=== PATIENT | male | born 1945 | race Two or more races ===

== ENCOUNTER → 2018-03-29 | Outpatient (CLI) | payer MEDICARE, OTHER ==
[2018-03-30 18:46] LABS: AHG CROSSMATCH 1 4
== END | disposition home or self-care (01) ==
LOC: LAB 15:03
DX: C92.00 Acute myeloblastic leukemia, not having achieved remission (principal)
CPT/HCPCS: 36430; 86850; 86870; 86900; 86901; 86902; 86920

== ENCOUNTER 2018-04-13 12:39 | Inpatient (IN) | payer MEDICARE, OTHER ==
[2018-04-13 15:19] LABS: WHITE BLOOD COUNT 2.2 10^3/ul (4.8-10.8)
[2018-04-13 15:19] LABS: ABNORMAL IP MESSAGE 1; MEAN CORPUSCULAR HEMOGLOBIN 30.9 pg (29.0-33.0); MEAN CORPUSCULAR HGB CONC 33.7 g/dl (32.0-37.0); MEAN CORPUSCULAR VOLUME 91.8 fl (82.0-101.0); MEAN PLATELET VOLUME 9.8 fl (7.4-10.4); PLATELET COUNT 34 10^3/UL (140-415); POSITIVE DIFF @See below; RED BLOOD COUNT 2.07 10^6/ul (4.70-6.10); RED CELL DISTRIBUTION WIDTH 12.8 % (11.5-14.5)
[2018-04-13 15:24] LABS: ADD MAN DIFF? YES; HEMOGLOBIN 6.4 g/dl (14.0-18.0)
[2018-04-13 15:35] LABS: ALANINE AMINOTRANSFERASE 30 IU/L (13-69); ALBUMIN 3.5 g/dl (3.3-4.9); ALBUMIN/GLOBULIN RATIO 0.74; ALKALINE PHOSPHATASE 83 IU/L (42-121); ANION GAP 8 (5-13); ASPARTATE AMINO TRANSFERASE 20 IU/L (15-46); BILIRUBIN,INDIRECT 0.5 mg/dl (0-1.1); BILIRUBIN,TOTAL 0.5 mg/dl (0.2-1.3); BLOOD UREA NITROGEN 19 mg/dl (7-20); CALCIUM 8.5 mg/dl (8.4-10.2); CARBON DIOXIDE 23 mmol/L (21-31); CHLORIDE 110 mmol/L (97-110); CREATININE 0.77 mg/dl (0.61-1.24); GLUCOSE 110 mg/dl (70-220); LIPASE 67 U/L (23-300); POTASSIUM 4.7 mmol/L (3.5-5.1); SODIUM 141 mmol/L (135-144); TOTAL PROTEIN 8.2 g/dl (6.1-8.1)
[2018-04-13 15:36] LABS: INR 1.07; PT RATIO 1.1
[2018-04-13 15:37] LABS: PARTIAL THROMBOPLASTIN TIME 31.1 Sec (23.0-35.0)
[2018-04-13 15:45] LABS: TROPONIN-I < 0.012 ng/ml (0.000-0.120)
[2018-04-13 16:07] LABS: ANISOCYTOSIS 2+ (0-0); EOSINOPHILS % (M) 3 % (0-7); ERYTHROBLAST% (NRBC) (M) 2 % (0-0); LYMPHOCYTES #M 1.8 10^3/ul (0.8-2.9); LYMPHOCYTES % (M) 85 % (15-51); MICROCYTOSIS 1+ (0-0); MONOCYTES % (M) 1 % (0-11); PLATELET ESTIMATE SIG DECREASED; POLYCHROMASIA 3+ (0-0); REACTIVE LYMPHOCYTES% (M) 3 % (0-0); SEGMENTED NEUTROPHILS (M) % 9 % (39-77); SMUDGE%M 2 % (0-0)
[2018-04-13] MEDS ORDERED: ACETAMINOPHEN 325 MG TAB PO (21:30)
[2018-04-13] MEDS ORDERED: ZOLPIDEM 5 MG TAB PO (21:30)
[2018-04-14] MEDS: FUROSEMIDE 20 MG INJ IV (00:11)
[2018-04-14 00:30] LABS: AHG CROSSMATCH 1 5
[2018-04-14] MEDS: PANTOPRAZOLE (EC) 40 MG TAB PO (05:59)
[2018-04-14 07:27] LABS: ADD MAN DIFF? NO
[2018-04-14 07:31] LABS: WHITE BLOOD COUNT 1.9 10^3/ul (4.8-10.8)
[2018-04-14 07:31] LABS: ABNORMAL IP MESSAGE 1; HEMATOCRIT 25.9 % (42.0-52.0); HEMOGLOBIN 8.8 g/dl (14.0-18.0); MEAN CORPUSCULAR HEMOGLOBIN 30.8 pg (29.0-33.0); MEAN CORPUSCULAR VOLUME 90.6 fl (82.0-101.0); MEAN PLATELET VOLUME 9.8 fl (7.4-10.4); POSITIVE DIFF @See below; RED BLOOD COUNT 2.86 10^6/ul (4.70-6.10); RED CELL DISTRIBUTION WIDTH 12.7 % (11.5-14.5)
[2018-04-14 07:43] LABS: PLATELET COUNT 28 10^3/UL (140-415)
[2018-04-14 08:12] LABS: B-TYPE NATRIURETIC PEPTIDE 561 PG/ML (0-125)
[2018-04-14 08:16] LABS: ANION GAP 8 (5-13); BLOOD UREA NITROGEN 17 mg/dl (7-20); CALCIUM 8.3 mg/dl (8.4-10.2); CARBON DIOXIDE 27 mmol/L (21-31); CHLORIDE 105 mmol/L (97-110); CREATININE 0.81 mg/dl (0.61-1.24); GLUCOSE 102 mg/dl (70-220); POTASSIUM 4.2 mmol/L (3.5-5.1); SODIUM 140 mmol/L (135-144)
[2018-04-14 10:14] LABS: LYMPHOCYTES #M 1.5 10^3/ul (0.8-2.9); LYMPHOCYTES % (M) 84 % (15-51); REACTIVE LYMPHOCYTES% (M) 3 % (0-0); SEGMENTED NEUTROPHILS (M) % 11 % (39-77)
[2018-04-14 10:15] LABS: EOSINOPHILS % (M) 1 % (0-7); GIANT THROMBO% (M) 1 % (0-0); MONOCYTES % (M) 1 % (0-11); PLATELET ESTIMATE SIG DECREASED; SMUDGE%M 4 % (0-0); TARGET CELLS 1+ (0-0)
[2018-04-14 16:41] LABS: ABNORMAL IP MESSAGE 1; HEMOGLOBIN 10.2 g/dl (14.0-18.0); MEAN CORPUSCULAR HEMOGLOBIN 29.7 pg (29.0-33.0); MEAN CORPUSCULAR VOLUME 87.2 fl (82.0-101.0); MEAN PLATELET VOLUME 8.9 fl (7.4-10.4); POSITIVE DIFF @See below; RED BLOOD COUNT 3.44 10^6/ul (4.70-6.10); RED CELL DISTRIBUTION WIDTH 15.2 % (11.5-14.5)
[2018-04-14 16:41] LABS: WHITE BLOOD COUNT 2.2 10^3/ul (4.8-10.8)
[2018-04-14 16:44] LABS: ADD MAN DIFF? YES; PLATELET COUNT 32 10^3/UL (140-415)
[2018-04-14 17:08] LABS: ANISOCYTOSIS 1+ (0-0); BAND NEUTROPHILS % (M) 2 % (0-4); BASOPHILS % (M) 1 % (0-2); EOSINOPHILS % (M) 1 % (0-7); LYMPHOCYTES #M 1.7 10^3/ul (0.8-2.9); LYMPHOCYTES % (M) 80 % (15-51); MICROCYTOSIS 1+ (0-0); MONOCYTE #M 0.1 10^3/ul (0.3-0.9); MONOCYTES % (M) 5 % (0-11); PLATELET ESTIMATE SIG DECREASED; POLYCHROMASIA 1+ (0-0); PROMYELOCYTES % (M) 1 % (0-0); REACTIVE LYMPHOCYTES #M 0.1 10^3/ul (0.0-0.0); REACTIVE LYMPHOCYTES% (M) 5 % (0-0); SEG NEUT #M 0.1 10^3/ul (1.6-7.5); SEGMENTED NEUTROPHILS (M) % 5 % (39-77); SMUDGE%M 1 % (0-0)
== END 2018-04-14 17:29 | disposition home or self-care (01) | DRG 809 ==
LOC: E/R 12:39 → 2NE 16:28 → TEL 20:43
PROVIDERS: Pediatrics
PROC: 30233N1 Transfusion of Nonautologous Red Blood Cells into Peripheral Vein, Percutaneous Approach (ICD-10-PCS; principal; 2018-04-13)
DX: D61.818 Other pancytopenia (principal); C92.00 Acute myeloblastic leukemia, not having achieved remission; I47.2 Ventricular tachycardia; I42.8 Other cardiomyopathies; I10 Essential (primary) hypertension; I25.10 Atherosclerotic heart disease of native coronary artery without angina pectoris; E78.5 Hyperlipidemia, unspecified; I95.9 Hypotension, unspecified
CPT/HCPCS: 36415; 36430; 80048; 80053; 83690; 83880; 84484; 85025; 85610; 85730; 86850; 86870; 86900; 86901; 86920; 93005; 99291-25

== ENCOUNTER 2018-04-27 07:22 | Inpatient (IN) | payer MEDICARE, OTHER ==
[2018-04-27 08:21] LABS: ADD UMIC YES; UR ASCORBIC ACID NEGATIVE (NEGATIVE); UR BILIRUBIN (Dip) NEGATIVE (NEGATIVE); UR BLOOD (Dip) 2+ mg/dL (NEGATIVE); UR CLARITY CLEAR (CLEAR); UR COLOR YELLOW (YELLOW); UR GLUCOSE (Dip) NEGATIVE (NEGATIVE); UR KETONES (Dip) NEGATIVE (NEGATIVE); UR LEUKOCYTE ESTERASE (Dip) NEGATIVE Leu/ul (NEGATIVE); UR MUCUS FEW /HPF (NONE SEEN); UR NITRITE (Dip) NEGATIVE (NEGATIVE); UR RBC 1 /HPF (0-5); UR SPECIFIC GRAVITY (Dip) 1.017 (1.003-1.030); UR TOTAL PROTEIN (Dip) NEGATIVE (NEGATIVE); UR UROBILINOGEN (Dip) NEGATIVE (NEGATIVE); UR WBC 2 /HPF (0-5)
[2018-04-27] MEDS: morphine 4 MG/ML VIAL IV (08:42)
[2018-04-27] MEDS: SODIUM CHLORIDE 0.9% 1L BAG IV* (08:42)
[2018-04-27] MEDS: ONDANSETRON 4 MG INJ IV (08:42)
[2018-04-27] MEDS: CEFTRIAXONE 1 GM/50 ML (PMX) 50 ML IVPB (08:42)
[2018-04-27 09:03] LABS: WHITE BLOOD COUNT 2.9 10^3/ul (4.8-10.8)
[2018-04-27 09:03] LABS: ABNORMAL IP MESSAGE 1; HEMATOCRIT 25.7 % (42.0-52.0); HEMOGLOBIN 8.6 g/dl (14.0-18.0); MEAN CORPUSCULAR HEMOGLOBIN 29.9 pg (29.0-33.0); MEAN CORPUSCULAR HGB CONC 33.5 g/dl (32.0-37.0); MEAN CORPUSCULAR VOLUME 89.2 fl (82.0-101.0); MEAN PLATELET VOLUME 9.4 fl (7.4-10.4); POSITIVE DIFF @See below; RED BLOOD COUNT 2.88 10^6/ul (4.70-6.10); RED CELL DISTRIBUTION WIDTH 15.3 % (11.5-14.5)
[2018-04-27 09:05] LABS: ADD MAN DIFF? YES; PLATELET COUNT 42 10^3/UL (140-415)
[2018-04-27 09:22] LABS: INR 1.23; PROTIME 15.7 Sec (11.9-14.9); PT RATIO 1.2
[2018-04-27 09:23] LABS: PARTIAL THROMBOPLASTIN TIME 34.8 Sec (23.0-35.0)
[2018-04-27 09:26] LABS: ANION GAP 6 (5-13); BLOOD UREA NITROGEN 13 mg/dl (7-20); CALCIUM 8.2 mg/dl (8.4-10.2); CARBON DIOXIDE 27 mmol/L (21-31); CHLORIDE 102 mmol/L (97-110); CREATININE 0.65 mg/dl (0.61-1.24); GLUCOSE 103 mg/dl (70-220); POTASSIUM 4.2 mmol/L (3.5-5.1); SODIUM 135 mmol/L (135-144)
[2018-04-27 09:37] LABS: TROPONIN-I < 0.012 ng/ml (0.000-0.120)
[2018-04-27 10:33] LABS: ANISOCYTOSIS 1+ (0-0); LYMPHOCYTES #M 1.4 10^3/ul (0.8-2.9); LYMPHOCYTES % (M) 50 % (15-51); MONOCYTE #M 0.4 10^3/ul (0.3-0.9); MONOCYTES % (M) 16 % (0-11); OVALOCYTES 1+ (0-0); PLATELET ESTIMATE DECREASED; POLYCHROMASIA 1+ (0-0); REACTIVE LYMPHOCYTES #M 0.6 10^3/ul (0.0-0.0); REACTIVE LYMPHOCYTES% (M) 21 % (0-0); SEGMENTED NEUTROPHILS (M) % 2 % (39-77); SMUDGE%M 3 % (0-0)
[2018-04-27] MEDS ORDERED: ACETAMINOPHEN 325 MG TAB PO (11:30)
[2018-04-27] MEDS ORDERED: ONDANSETRON 4 MG INJ IV ×2 (11:30→15:30)
[2018-04-27 12:58] LABS: LACTIC ACID 0.6 mmol/L (0.5-2.0)
[2018-04-27] MEDS ORDERED: ZOLPIDEM 5 MG TAB PO (15:30)
[2018-04-27] MEDS: HYDROCODONE/APAP (5/325) TAB PO (15:41)
[2018-04-28] MEDS: HYDROCODONE/APAP (5/325) TAB PO (01:45)
[2018-04-28 06:32] LABS: WHITE BLOOD COUNT 2.5 10^3/ul (4.8-10.8)
[2018-04-28 06:32] LABS: ABNORMAL IP MESSAGE 1; HEMATOCRIT 24.1 % (42.0-52.0); HEMOGLOBIN 7.8 g/dl (14.0-18.0); MEAN CORPUSCULAR HEMOGLOBIN 29.3 pg (29.0-33.0); MEAN CORPUSCULAR HGB CONC 32.4 g/dl (32.0-37.0); MEAN CORPUSCULAR VOLUME 90.6 fl (82.0-101.0); MEAN PLATELET VOLUME 9.8 fl (7.4-10.4); PLATELET COUNT 34 10^3/UL (140-415); POSITIVE DIFF @See below; RED BLOOD COUNT 2.66 10^6/ul (4.70-6.10); RED CELL DISTRIBUTION WIDTH 15.4 % (11.5-14.5)
[2018-04-28 06:52] LABS: ADD MAN DIFF? YES
[2018-04-28 07:05] LABS: B-TYPE NATRIURETIC PEPTIDE 2600 PG/ML (0-125)
[2018-04-28 07:13] LABS: ANION GAP 7 (5-13); BLOOD UREA NITROGEN 13 mg/dl (7-20); CARBON DIOXIDE 27 mmol/L (21-31); CHLORIDE 103 mmol/L (97-110); CREATININE 0.65 mg/dl (0.61-1.24); GLUCOSE 102 mg/dl (70-220); POTASSIUM 4.4 mmol/L (3.5-5.1); SODIUM 137 mmol/L (135-144)
[2018-04-28] MEDS: CEFTRIAXONE 1 GM/50 ML (PMX) 50 ML IVPB ×2 (09:01→09:11)
[2018-04-28 09:06] LABS: HYPOCHROMASIA 1+ (0-0); LYMPHOCYTES #M 1.3 10^3/ul (0.8-2.9); LYMPHOCYTES % (M) 54 % (15-51); MONOCYTE #M 0.2 10^3/ul (0.3-0.9); MONOCYTES % (M) 9 % (0-11); PLATELET ESTIMATE SIG DECREASED; PROMYELOCYTES % (M) 3 % (0-0); REACTIVE LYMPHOCYTES #M 0.5 10^3/ul (0.0-0.0); REACTIVE LYMPHOCYTES% (M) 20 % (0-0); SEGMENTED NEUTROPHILS (M) % 1 % (39-77); SMUDGE%M 11 % (0-0)
[2018-04-28] MEDS: TAMSULOSIN (SR) 0.4 MG CAP PO (20:33)
[2018-04-28] MEDS: MEROPENEM 1 GM/50ML(PMX) 50 ML IVPB (20:33)
[2018-04-28] MEDS: morphine 2 MG INJ IV (20:42)
[2018-04-29] MEDS: morphine 2 MG INJ IV ×2 (02:32→19:53)
[2018-04-29 06:18] LABS: WHITE BLOOD COUNT 2.7 10^3/ul (4.8-10.8)
[2018-04-29 06:18] LABS: ABNORMAL IP MESSAGE 1; HEMATOCRIT 23.6 % (42.0-52.0); HEMOGLOBIN 7.7 g/dl (14.0-18.0); MEAN CORPUSCULAR HEMOGLOBIN 29.1 pg (29.0-33.0); MEAN CORPUSCULAR HGB CONC 32.6 g/dl (32.0-37.0); MEAN CORPUSCULAR VOLUME 89.1 fl (82.0-101.0); MEAN PLATELET VOLUME 9.3 fl (7.4-10.4); PLATELET COUNT 42 10^3/UL (140-415); POSITIVE DIFF @See below; RED BLOOD COUNT 2.65 10^6/ul (4.70-6.10); RED CELL DISTRIBUTION WIDTH 15.1 % (11.5-14.5)
[2018-04-29 06:33] LABS: ADD MAN DIFF? YES
[2018-04-29 06:35] LABS: ANION GAP 10 (5-13); BLOOD UREA NITROGEN 13 mg/dl (7-20); CALCIUM 7.9 mg/dl (8.4-10.2); CARBON DIOXIDE 25 mmol/L (21-31); CHLORIDE 101 mmol/L (97-110); GLUCOSE 101 mg/dl (70-220); POTASSIUM 4.6 mmol/L (3.5-5.1); SODIUM 136 mmol/L (135-144)
[2018-04-29 06:36] LABS: B-TYPE NATRIURETIC PEPTIDE 2570 PG/ML (0-125)
[2018-04-29 07:38] LABS: BAND NEUTROPHILS % (M) 1 % (0-4); LYMPHOCYTES #M 1.8 10^3/ul (0.8-2.9); LYMPHOCYTES % (M) 69 % (15-51); MONOCYTE #M 0.4 10^3/ul (0.3-0.9); MONOCYTES % (M) 18 % (0-11); PLATELET ESTIMATE DECREASED; SEG NEUT #M 0.1 10^3/ul (1.6-7.5); SEGMENTED NEUTROPHILS (M) % 4 % (39-77); SMUDGE%M 21 % (0-0)
[2018-04-29] MEDS: MEROPENEM 1 GM/50ML(PMX) 50 ML IVPB ×2 (09:22→20:12)
[2018-04-29] MEDS: TAMSULOSIN (SR) 0.4 MG CAP PO (20:12)
[2018-04-30 05:21] LABS: ABNORMAL IP MESSAGE 1; HEMATOCRIT 21.3 % (42.0-52.0); HEMOGLOBIN 7.1 g/dl (14.0-18.0); MEAN CORPUSCULAR HEMOGLOBIN 29.5 pg (29.0-33.0); MEAN CORPUSCULAR HGB CONC 33.3 g/dl (32.0-37.0); MEAN CORPUSCULAR VOLUME 88.4 fl (82.0-101.0); MEAN PLATELET VOLUME 9.2 fl (7.4-10.4); PLATELET COUNT 53 10^3/UL (140-415); POSITIVE DIFF @See below; RED BLOOD COUNT 2.41 10^6/ul (4.70-6.10); RED CELL DISTRIBUTION WIDTH 15.1 % (11.5-14.5)
[2018-04-30 05:21] LABS: WHITE BLOOD COUNT 2.4 10^3/ul (4.8-10.8)
[2018-04-30 05:37] LABS: ADD MAN DIFF? YES
[2018-04-30 06:06] LABS: B-TYPE NATRIURETIC PEPTIDE 1290 PG/ML (0-125)
[2018-04-30 06:08] LABS: ANION GAP 7 (5-13); BLOOD UREA NITROGEN 14 mg/dl (7-20); CARBON DIOXIDE 27 mmol/L (21-31); CHLORIDE 103 mmol/L (97-110); CREATININE 0.61 mg/dl (0.61-1.24); GLUCOSE 109 mg/dl (70-220); POTASSIUM 4.6 mmol/L (3.5-5.1); SODIUM 137 mmol/L (135-144)
[2018-04-30] MEDS: MEROPENEM 1 GM/50ML(PMX) 50 ML IVPB ×2 (08:03→22:11)
[2018-04-30 09:23] LABS: BAND NEUTROPHILS % (M) 1 % (0-4); BURR CELLS 1+ (0-0); LYMPHOCYTES #M 1.6 10^3/ul (0.8-2.9); LYMPHOCYTES % (M) 67 % (15-51); MONOCYTE #M 0.2 10^3/ul (0.3-0.9); MONOCYTES % (M) 9 % (0-11); OVALOCYTES 1+ (0-0); PLASMAC%(M) 2 % (0); PLATELET ESTIMATE DECREASED; POIKILOCYTOSIS 1+ (0-0); REACTIVE LYMPHOCYTES% (M) 3 % (0-0); SEG NEUT #M 0.3 10^3/ul (1.6-7.5); SEGMENTED NEUTROPHILS (M) % 11 % (39-77); SMUDGE%M 26 % (0-0)
[2018-04-30 17:41] LABS: AHG CROSSMATCH 1 3
[2018-04-30] MEDS: ACETAMINOPHEN 325 MG TAB PO (19:00)
[2018-04-30] MEDS: TAMSULOSIN (SR) 0.4 MG CAP PO (20:08)
[2018-05-01 06:31] LABS: WHITE BLOOD COUNT 2.1 10^3/ul (4.8-10.8)
[2018-05-01 06:31] LABS: ABNORMAL IP MESSAGE 1; HEMOGLOBIN 8.9 g/dl (14.0-18.0); MEAN CORPUSCULAR HEMOGLOBIN 29.4 pg (29.0-33.0); MEAN CORPUSCULAR VOLUME 89.1 fl (82.0-101.0); MEAN PLATELET VOLUME 9.2 fl (7.4-10.4); PLATELET COUNT 46 10^3/UL (140-415); POSITIVE DIFF @See below; RED BLOOD COUNT 3.03 10^6/ul (4.70-6.10); RED CELL DISTRIBUTION WIDTH 14.5 % (11.5-14.5)
[2018-05-01 06:35] LABS: ADD MAN DIFF? YES
[2018-05-01 08:58] LABS: BLAST% (M) 9.8 % (0-0); ERYTHROBLAST% (NRBC) (M) 1 % (0-0); GIANT THROMBO% (M) 1 % (0-0); LYMPHOCYTES #M 1.5 10^3/ul (0.8-2.9); LYMPHOCYTES % (M) 72 % (15-51); MONOCYTE #M 0.1 10^3/ul (0.3-0.9); MONOCYTES % (M) 8 % (0-11); MYELOCYTES % (M) 2 % (0-0); OVALOCYTES 1+ (0-0); PLATELET ESTIMATE DECREASED; REACTIVE LYMPHOCYTES #M 0.1 10^3/ul (0.0-0.0); REACTIVE LYMPHOCYTES% (M) 7 % (0-0); SEGMENTED NEUTROPHILS (M) % 2 % (39-77); SMUDGE%M 21 % (0-0)
[2018-05-01] MEDS: MEROPENEM 1 GM/50ML(PMX) 50 ML IVPB (09:43)
[2018-05-01] MEDS: morphine LIQ (10 MG/5 ML) CUP PO (11:52)
== END 2018-05-01 20:25 | disposition still patient (30) | DRG 728 ==
LOC: E/R 07:22 → PP2 11:26
PROC: 30233N1 Transfusion of Nonautologous Red Blood Cells into Peripheral Vein, Percutaneous Approach (ICD-10-PCS; principal; 2018-04-30)
DX: N45.3 Epididymo-orchitis (principal); C92.00 Acute myeloblastic leukemia, not having achieved remission; I42.9 Cardiomyopathy, unspecified; D61.818 Other pancytopenia; N30.00 Acute cystitis without hematuria; I10 Essential (primary) hypertension; E78.5 Hyperlipidemia, unspecified; I25.2 Old myocardial infarction; N40.0 Benign prostatic hyperplasia without lower urinary tract symptoms; Z82.49 Family history of ischemic heart disease and other diseases of the circulatory system
CPT/HCPCS: 36415; 36430; 71045; 80048; 81001; 83605; 83880; 84484; 85025; 85610; 85730; 86850; 86870; 86900; 86901; 86920; 87040; 87081; 87086; 93005; 93306; 96374; 96375; 99291-25

== ENCOUNTER 2018-05-24 14:25 | Observation (INO) | payer MEDICARE, OTHER ==
[2018-05-24 15:05] LABS: WHITE BLOOD COUNT 1.2 10^3/ul (4.8-10.8)
[2018-05-24 15:05] LABS: ABNORMAL IP MESSAGE 1; HEMATOCRIT 20.7 % (42.0-52.0); MEAN CORPUSCULAR HEMOGLOBIN 28.3 pg (29.0-33.0); MEAN CORPUSCULAR HGB CONC 32.9 g/dl (32.0-37.0); MEAN CORPUSCULAR VOLUME 86.3 fl (82.0-101.0); MEAN PLATELET VOLUME 10.7 fl (7.4-10.4); POSITIVE DIFF @See below; RED CELL DISTRIBUTION WIDTH 13.3 % (11.5-14.5)
[2018-05-24 15:22] LABS: ALANINE AMINOTRANSFERASE 54 IU/L (13-69); ALBUMIN 3.5 g/dl (3.3-4.9); ALKALINE PHOSPHATASE 69 IU/L (42-121); ANION GAP 7 (5-13); ASPARTATE AMINO TRANSFERASE 38 IU/L (15-46); BILIRUBIN,INDIRECT 1.2 mg/dl (0-1.1); BILIRUBIN,TOTAL 1.2 mg/dl (0.2-1.3); BLOOD UREA NITROGEN 20 mg/dl (7-20); CALCIUM 8.9 mg/dl (8.4-10.2); CARBON DIOXIDE 28 mmol/L (21-31); CHLORIDE 99 mmol/L (97-110); CREATININE 0.82 mg/dl (0.61-1.24); GLUCOSE 136 mg/dl (70-220); POTASSIUM 4.3 mmol/L (3.5-5.1); SODIUM 134 mmol/L (135-144); TOTAL PROTEIN 8.5 g/dl (6.1-8.1)
[2018-05-24 15:24] LABS: ADD UMIC YES; HEMOGLOBIN 6.8 g/dl (14.0-18.0); UR ASCORBIC ACID NEGATIVE (NEGATIVE); UR BILIRUBIN (Dip) NEGATIVE (NEGATIVE); UR BLOOD (Dip) 1+ mg/dL (NEGATIVE); UR CLARITY CLEAR (CLEAR); UR COLOR YELLOW (YELLOW); UR GLUCOSE (Dip) NEGATIVE (NEGATIVE); UR KETONES (Dip) NEGATIVE (NEGATIVE); UR LEUKOCYTE ESTERASE (Dip) NEGATIVE Leu/ul (NEGATIVE); UR MUCUS FEW /HPF (NONE SEEN); UR NITRITE (Dip) NEGATIVE (NEGATIVE); UR RBC 0 /HPF (0-5); UR SPECIFIC GRAVITY (Dip) 1.019 (1.003-1.030); UR TOTAL PROTEIN (Dip) NEGATIVE (NEGATIVE); UR UROBILINOGEN (Dip) NEGATIVE (NEGATIVE); UR WBC 6 /HPF (0-5)
[2018-05-24 15:25] LABS: PLATELET COUNT 21 10^3/UL (140-415)
[2018-05-24 15:26] LABS: ADD MAN DIFF? YES
[2018-05-24 15:27] LABS: PATH REVIEW? YES
[2018-05-24] MEDS ORDERED: ACETAMINOPHEN 325 MG TAB PO (16:00)
[2018-05-24] MEDS ORDERED: ONDANSETRON 4 MG INJ IV (16:00)
[2018-05-24 17:02] LABS: BAND NEUTROPHILS % (M) 5 % (0-4); LYMPHOCYTES #M 0.8 10^3/ul (0.8-2.9); LYMPHOCYTES % (M) 70 % (15-51); MONOCYTES % (M) 4 % (0-11); PLATELET MORPHOLOGY COMMENT @See below; SEG NEUT #M 0.3 10^3/ul (1.6-7.5); SEGMENTED NEUTROPHILS (M) % 21 % (39-77); SMUDGE%M 6 % (0-0)
[2018-05-25 07:03] LABS: ABNORMAL IP MESSAGE 1; HEMATOCRIT 21.5 % (42.0-52.0); HEMOGLOBIN 7.1 g/dl (14.0-18.0); MEAN CORPUSCULAR HEMOGLOBIN 29.2 pg (29.0-33.0); MEAN CORPUSCULAR VOLUME 88.5 fl (82.0-101.0); MEAN PLATELET VOLUME 11.9 fl (7.4-10.4); POSITIVE DIFF @See below; RED BLOOD COUNT 2.43 10^6/ul (4.70-6.10); RED CELL DISTRIBUTION WIDTH 13.6 % (11.5-14.5)
[2018-05-25 07:03] LABS: WHITE BLOOD COUNT 1.1 10^3/ul (4.8-10.8)
[2018-05-25 07:12] LABS: ADD MAN DIFF? YES; PLATELET COUNT 17 10^3/UL (140-415)
[2018-05-25 09:04] LABS: ANISOCYTOSIS 1+ (0-0); BAND NEUTROPHILS % (M) 5 % (0-4); GIANT THROMBO% (M) 2 % (0-0); LYMPHOCYTES #M 0.8 10^3/ul (0.8-2.9); LYMPHOCYTES % (M) 74 % (15-51); MONOCYTES % (M) 4 % (0-11); PLATELET ESTIMATE SIG DECREASED; POLYCHROMASIA 3+ (0-0); REACTIVE LYMPHOCYTES% (M) 5 % (0-0); SEG NEUT #M 0.1 10^3/ul (1.6-7.5); SEGMENTED NEUTROPHILS (M) % 13 % (39-77); SMUDGE%M 5 % (0-0)
[2018-05-25] MEDS ORDERED: DOCUSATE SODIUM 100 MG CAP PO (12:30)
[2018-05-25] MEDS ORDERED: BISACODYL (EC) 5 MG TAB PO (12:30)
[2018-05-25 16:34] LABS: AHG CROSSMATCH 1 9
[2018-05-26 07:34] LABS: WHITE BLOOD COUNT 1.2 10^3/ul (4.8-10.8)
[2018-05-26 07:34] LABS: ABNORMAL IP MESSAGE 1; HEMATOCRIT 28.4 % (42.0-52.0); HEMOGLOBIN 9.4 g/dl (14.0-18.0); MEAN CORPUSCULAR HEMOGLOBIN 29.3 pg (29.0-33.0); MEAN CORPUSCULAR HGB CONC 33.1 g/dl (32.0-37.0); MEAN CORPUSCULAR VOLUME 88.5 fl (82.0-101.0); MEAN PLATELET VOLUME 11.6 fl (7.4-10.4); POSITIVE DIFF @See below; RED BLOOD COUNT 3.21 10^6/ul (4.70-6.10); RED CELL DISTRIBUTION WIDTH 13.6 % (11.5-14.5)
[2018-05-26 07:39] LABS: ADD MAN DIFF? YES; PLATELET COUNT 22 10^3/UL (140-415)
[2018-05-26 10:08] LABS: BAND NEUTROPHILS #M 0.1 10^3/ul (0.0-0.6); BAND NEUTROPHILS % (M) 9 % (0-4); BASOPHILS % (M) 2 % (0-2); EOSINOPHILS % (M) 1 % (0-7); GIANT THROMBO% (M) 1 % (0-0); LYMPHOCYTES #M 0.6 10^3/ul (0.8-2.9); LYMPHOCYTES % (M) 50 % (15-51); MONOCYTE #M 0.1 10^3/ul (0.3-0.9); MONOCYTES % (M) 10 % (0-11); MYELOCYTES % (M) 1 % (0-0); PLATELET ESTIMATE SIG DECREASED; PROMYELOCYTES % (M) 1 % (0-0); REACTIVE LYMPHOCYTES% (M) 5 % (0-0); SEG NEUT #M 0.3 10^3/ul (1.6-7.5); SEGMENTED NEUTROPHILS (M) % 21 % (39-77); SMUDGE%M 7 % (0-0)
== END 2018-05-26 10:20 | disposition home or self-care (01) ==
LOC: E/R 14:25 → PP2 15:37
PROVIDERS: Internal Medicine Hematology & Oncology
DX: C92.00 Acute myeloblastic leukemia, not having achieved remission (principal); D61.818 Other pancytopenia
CPT/HCPCS: 36430; 80053; 81001; 85025; 86850; 86870; 86900; 86901; 86920; 87081; 99285-25; G0378

== ENCOUNTER 2018-07-06 06:53 | Observation (INO) | payer MEDICARE, OTHER ==
[2018-07-06 07:40] LABS: WHITE BLOOD COUNT 13.1 10^3/ul (4.8-10.8)
[2018-07-06 07:40] LABS: ABNORMAL IP MESSAGE 1; HEMATOCRIT 21.3 % (42.0-52.0); MEAN CORPUSCULAR HEMOGLOBIN 28.4 pg (29.0-33.0); MEAN CORPUSCULAR HGB CONC 32.4 g/dl (32.0-37.0); MEAN CORPUSCULAR VOLUME 87.7 fl (82.0-101.0); PLATELET COUNT 85 10^3/UL (140-415); POSITIVE DIFF @See below; RED BLOOD COUNT 2.43 10^6/ul (4.70-6.10); RED CELL DISTRIBUTION WIDTH 15.2 % (11.5-14.5)
[2018-07-06 07:47] LABS: HEMOGLOBIN 6.9 g/dl (14.0-18.0)
[2018-07-06 07:49] LABS: ADD MAN DIFF? YES
[2018-07-06 07:57] LABS: INR 1.07; PT RATIO 1.1
[2018-07-06] MEDS: PANTOPRAZOLE 40 MG INJ IV (07:57)
[2018-07-06 07:58] LABS: PARTIAL THROMBOPLASTIN TIME 22.3 Sec (23.0-35.0)
[2018-07-06 07:59] LABS: ALANINE AMINOTRANSFERASE 68 IU/L (13-69); ALKALINE PHOSPHATASE 69 IU/L (42-121); ANION GAP 12 (5-13); ASPARTATE AMINO TRANSFERASE 58 IU/L (15-46); BILIRUBIN,TOTAL 0.6 mg/dl (0.2-1.3); BLOOD UREA NITROGEN 14 mg/dl (7-20); CALCIUM 9.1 mg/dl (8.4-10.2); CARBON DIOXIDE 27 mmol/L (21-31); CHLORIDE 104 mmol/L (97-110); CREATININE 0.66 mg/dl (0.61-1.24); GLUCOSE 145 mg/dl (70-220); POTASSIUM 4.1 mmol/L (3.5-5.1); SODIUM 143 mmol/L (135-144)
[2018-07-06 08:00] LABS: ALBUMIN/GLOBULIN RATIO 0.81; BILIRUBIN,INDIRECT 0.6 mg/dl (0-1.1); TOTAL PROTEIN 8.9 g/dl (6.1-8.1)
[2018-07-06] MEDS ORDERED: ACETAMINOPHEN 325 MG TAB PO ×2 (08:00→10:00)
[2018-07-06] MEDS ORDERED: ONDANSETRON 4 MG INJ IV (08:00)
[2018-07-06 08:10] LABS: TROPONIN-I < 0.012 ng/ml (0.000-0.120)
[2018-07-06 09:07] LABS: ANISOCYTOSIS 1+ (0-0); EOSINOPHILS % (M) 3 % (0-7); LYMPHOCYTES #M 5.5 10^3/ul (0.8-2.9); LYMPHOCYTES % (M) 42 % (15-51); MICROCYTOSIS 1+ (0-0); MONOCYTE #M 0.7 10^3/ul (0.3-0.9); MONOCYTES % (M) 6 % (0-11); PLATELET ESTIMATE DECREASED; POLYCHROMASIA 1+ (0-0); SEGMENTED NEUTROPHILS (M) % 3 % (39-77); SMUDGE%M 12 % (0-0)
[2018-07-06] MEDS ORDERED: morphine 4 MG/ML VIAL IV (10:00)
[2018-07-06] MEDS ORDERED: HYDROCODONE/APAP (5/325) TAB PO (10:00)
[2018-07-06] MEDS: SOD CHLORIDE 0.9% 0 ML IV (14:00)
[2018-07-06] MEDS ORDERED: ONDANSETRON 4 MG TAB PO (17:00)
[2018-07-06] MEDS ORDERED: PROCHLORPERAZINE 10 MG TAB PO (17:00)
[2018-07-06] MEDS ORDERED: ZOLPIDEM 5 MG TAB PO (17:00)
[2018-07-06] MEDS ORDERED: FUROSEMIDE 20 MG INJ (19:47)
[2018-07-06] MEDS: FUROSEMIDE 20 MG INJ IV (19:54)
[2018-07-06] MEDS: LISINOPRIL 10 MG TAB PO (20:30)
[2018-07-06] MEDS: TAMSULOSIN (SR) 0.4 MG CAP PO (20:30)
[2018-07-06 20:41] LABS: AHG CROSSMATCH 1 4
[2018-07-07] MEDS: PANTOPRAZOLE (EC) 40 MG TAB PO (06:44)
[2018-07-07 07:18] LABS: ALANINE AMINOTRANSFERASE 83 IU/L (13-69); ALBUMIN 3.6 g/dl (3.3-4.9); ALKALINE PHOSPHATASE 63 IU/L (42-121); ANION GAP 10 (5-13); ASPARTATE AMINO TRANSFERASE 64 IU/L (15-46); BILIRUBIN,INDIRECT 1.1 mg/dl (0-1.1); BILIRUBIN,TOTAL 1.1 mg/dl (0.2-1.3); BLOOD UREA NITROGEN 15 mg/dl (7-20); CALCIUM 8.8 mg/dl (8.4-10.2); CARBON DIOXIDE 31 mmol/L (21-31); CHLORIDE 102 mmol/L (97-110); CREATININE 0.69 mg/dl (0.61-1.24); GLUCOSE 105 mg/dl (70-220); POTASSIUM 4.3 mmol/L (3.5-5.1); SODIUM 143 mmol/L (135-144); TOTAL PROTEIN 8.1 g/dl (6.1-8.1)
[2018-07-07] MEDS: LISINOPRIL 10 MG TAB PO (08:19)
[2018-07-07 09:13] LABS: ADD MAN DIFF? NO
[2018-07-07 09:18] LABS: ABNORMAL IP MESSAGE 1; HEMATOCRIT 28.8 % (42.0-52.0); HEMOGLOBIN 9.3 g/dl (14.0-18.0); MEAN CORPUSCULAR HEMOGLOBIN 28.2 pg (29.0-33.0); MEAN CORPUSCULAR HGB CONC 32.3 g/dl (32.0-37.0); MEAN CORPUSCULAR VOLUME 87.3 fl (82.0-101.0); MEAN PLATELET VOLUME 9.2 fl (7.4-10.4); PLATELET COUNT 78 10^3/UL (140-415); POSITIVE DIFF @See below; RED CELL DISTRIBUTION WIDTH 14.6 % (11.5-14.5)
[2018-07-07 09:18] LABS: WHITE BLOOD COUNT 16.5 10^3/ul (4.8-10.8)
[2018-07-07 12:13] LABS: BAND NEUTROPHILS #M 0.1 10^3/ul (0.0-0.6); BAND NEUTROPHILS % (M) 1 % (0-4); EOSINOPHILS % (M) 1 % (0-7); HYPOCHROMASIA 1+ (0-0); LYMPHOCYTES #M 5.9 10^3/ul (0.8-2.9); LYMPHOCYTES % (M) 36 % (15-51); MONOCYTE #M 0.8 10^3/ul (0.3-0.9); MONOCYTES % (M) 5 % (0-11); PLATELET ESTIMATE DECREASED; REACTIVE LYMPHOCYTES #M 1.8 10^3/ul (0.0-0.0); REACTIVE LYMPHOCYTES% (M) 11 % (0-0); SEG NEUT #M 0.2 10^3/ul (1.6-7.5); SEGMENTED NEUTROPHILS (M) % 1 % (39-77); SMUDGE%M 2 % (0-0)
== END 2018-07-07 10:30 | disposition home or self-care (01) ==
LOC: E/R 06:53 → 2NE 07:52
DX: D64.9 Anemia, unspecified (principal); C92.00 Acute myeloblastic leukemia, not having achieved remission; I10 Essential (primary) hypertension; I25.10 Atherosclerotic heart disease of native coronary artery without angina pectoris; N40.0 Benign prostatic hyperplasia without lower urinary tract symptoms; E78.5 Hyperlipidemia, unspecified; I25.2 Old myocardial infarction; M19.90 Unspecified osteoarthritis, unspecified site; K21.9 Gastro-esophageal reflux disease without esophagitis; F32.9 Major depressive disorder, single episode, unspecified; N31.9 Neuromuscular dysfunction of bladder, unspecified
CPT/HCPCS: 36415; 36430; 80053; 84484; 85025; 85610; 85730; 86644; 86850; 86870; 86900; 86901; 86920; 93005; 99291-25

== ENCOUNTER 2018-07-10 06:28 | Emergency (ER) | payer MEDICARE, OTHER ==
[2018-07-10] MEDS: HYDROmorphONE 1 MG/ML SYG IV (07:26)
[2018-07-10] MEDS: SOD CHLORIDE 0.9% 500 ML IV (07:26)
[2018-07-10] MEDS: ONDANSETRON 4 MG INJ IV (07:26)
[2018-07-10 07:28] LABS: ABNORMAL IP MESSAGE 1; HEMOGLOBIN 9.3 g/dl (14.0-18.0); MEAN CORPUSCULAR HEMOGLOBIN 28.8 pg (29.0-33.0); MEAN CORPUSCULAR HGB CONC 33.2 g/dl (32.0-37.0); MEAN CORPUSCULAR VOLUME 86.7 fl (82.0-101.0); MEAN PLATELET VOLUME 9.3 fl (7.4-10.4); PLATELET COUNT 55 10^3/UL (140-415); POSITIVE DIFF @See below; RED BLOOD COUNT 3.23 10^6/ul (4.70-6.10); RED CELL DISTRIBUTION WIDTH 14.6 % (11.5-14.5)
[2018-07-10 07:28] LABS: WHITE BLOOD COUNT 15.9 10^3/ul (4.8-10.8)
[2018-07-10 07:33] LABS: ADD MAN DIFF? YES
[2018-07-10 07:37] LABS: INR 1.22; PROTIME 15.5 Sec (11.9-14.9); PT RATIO 1.2
[2018-07-10 07:41] LABS: ALANINE AMINOTRANSFERASE 83 IU/L (13-69); ALKALINE PHOSPHATASE 74 IU/L (42-121); ANION GAP 10 (5-13); ASPARTATE AMINO TRANSFERASE 61 IU/L (15-46); BLOOD UREA NITROGEN 21 mg/dl (7-20); CALCIUM 9.1 mg/dl (8.4-10.2); CARBON DIOXIDE 27 mmol/L (21-31); CHLORIDE 105 mmol/L (97-110); CREATININE 0.66 mg/dl (0.61-1.24); GLUCOSE 143 mg/dl (70-220); LIPASE 24 U/L (23-300); POTASSIUM 4.7 mmol/L (3.5-5.1); SODIUM 142 mmol/L (135-144)
[2018-07-10] MEDS: SOD CHLORIDE 0.9% 100 ML (08:25)
[2018-07-10] MEDS: IOHEXOL 300MG/ML 150 ML BTL (08:26)
[2018-07-10 09:25] LABS: ANISOCYTOSIS 1+ (0-0); EOSINOPHILS % (M) 2 % (0-7); LYMPHOCYTES #M 5.4 10^3/ul (0.8-2.9); LYMPHOCYTES % (M) 34 % (15-51); MONOCYTE #M 1.7 10^3/ul (0.3-0.9); MONOCYTES % (M) 11 % (0-11); PLATELET ESTIMATE SIG DECREASED; POIKILOCYTOSIS 1+ (0-0); REACTIVE LYMPHOCYTES #M 0.3 10^3/ul (0.0-0.0); REACTIVE LYMPHOCYTES% (M) 2 % (0-0); SEGMENTED NEUTROPHILS (M) % 2 % (39-77); SMUDGE%M 3 % (0-0)
== END 2018-07-10 10:07 | disposition home or self-care (01) ==
LOC: E/R 06:28
DX: R16.1 Splenomegaly, not elsewhere classified (principal); Z85.6 Personal history of leukemia
CPT/HCPCS: 36415; 74177; 80053; 83690; 85025; 85610; 85730; 96374; 96375; 99285-25

== ENCOUNTER 2018-07-27 05:52 | Inpatient (IN) | payer MEDICARE, OTHER ==
[2018-07-27 06:32] LABS: WHITE BLOOD COUNT 165.7 10^3/ul (4.8-10.8)
[2018-07-27 06:32] LABS: ABNORMAL IP MESSAGE 1; HEMATOCRIT 20.5 % (42.0-52.0); MEAN CORPUSCULAR HEMOGLOBIN 28.3 pg (29.0-33.0); MEAN CORPUSCULAR HGB CONC 32.2 g/dl (32.0-37.0); MEAN PLATELET VOLUME 9.3 fl (7.4-10.4); POSITIVE DIFF @See below; RED BLOOD COUNT 2.33 10^6/ul (4.70-6.10); RED CELL DISTRIBUTION WIDTH 16.4 % (11.5-14.5)
[2018-07-27] MEDS: IPRATROPIUM (NEB) 0.5 MG/2.5 ML AMP NEB (06:36)
[2018-07-27] MEDS: ALBUTEROL 0.083% (NEB) 2.5 MG/3 ML AMP NEB (06:36)
[2018-07-27 06:42] LABS: ADD MAN DIFF? YES; HEMOGLOBIN 6.6 g/dl (14.0-18.0); PLATELET COUNT 27 10^3/UL (140-415)
[2018-07-27 06:50] LABS: IRON 237 ug/dl (35-150)
[2018-07-27 06:52] LABS: ALANINE AMINOTRANSFERASE 107 IU/L (13-69); ALBUMIN 3.5 g/dl (3.3-4.9); ALBUMIN/GLOBULIN RATIO 0.74; ALKALINE PHOSPHATASE 124 IU/L (42-121); ANION GAP 11 (5-13); ASPARTATE AMINO TRANSFERASE 100 IU/L (15-46); BLOOD UREA NITROGEN 30 mg/dl (7-20); CALCIUM 8.8 mg/dl (8.4-10.2); CARBON DIOXIDE 25 mmol/L (21-31); CHLORIDE 99 mmol/L (97-110); CREATININE 1.26 mg/dl (0.61-1.24); GLUCOSE 147 mg/dl (70-220); LACTATE DEHYDROGENASE 2029 IU/L (313-618); POTASSIUM 4.8 mmol/L (3.5-5.1); SODIUM 135 mmol/L (135-144); TOTAL PROTEIN 8.2 g/dl (6.1-8.1)
[2018-07-27 06:59] LABS: % IRON SATURATION 97 % SAT (22-52); TOTAL IRON BINDING CAPACITY 245 ug/dl (241-421)
[2018-07-27] MEDS: CEFEPIME 2GM/50 ML (PMX) 50 ML IVPB (07:06)
[2018-07-27] MEDS: ONDANSETRON 4 MG INJ IV (07:06)
[2018-07-27] MEDS: morphine 4 MG/ML VIAL IV (07:06)
[2018-07-27] MEDS: SODIUM CHLORIDE 0.9% 1L BAG IV* (07:06)
[2018-07-27 07:27] LABS: ANISOCYTOSIS 1+ (0-0); HYPOCHROMASIA 2+ (0-0); LYMPHOCYTES #M 31.4 10^3/ul (0.8-2.9); LYMPHOCYTES % (M) 19 % (15-51); PLATELET ESTIMATE SIG DECREASED; RBC MORPHOLOGY COMMENT @See below; SMUDGE%M 3 % (0-0); SPHEROCYTES 1+ (0-0); WBC MORPHOLOGY COMMENT @See below
[2018-07-27] MEDS: VANCOMYCIN 1 GM (PMX) 250 ML IVPB (08:23)
[2018-07-27] MEDS ORDERED: ACETAMINOPHEN 325 MG TAB PO (10:00)
[2018-07-27] MEDS ORDERED: ONDANSETRON 4 MG INJ IV ×2 (10:00→17:30)
[2018-07-27 11:17] LABS: LACTIC ACID 1.4 mmol/L (0.5-2.0)
[2018-07-27] MEDS: IPRATROPIUM (NEB) 0.5 MG/2.5 ML AMP INH (11:58)
[2018-07-27] MEDS: ALBUTEROL 0.5% (NEB) 2.5 MG/0.5 ML AMP INH (11:58)
[2018-07-27 16:37] LABS: ABNORMAL IP MESSAGE 1; HEMATOCRIT 23.7 % (42.0-52.0); HEMOGLOBIN 7.7 g/dl (14.0-18.0); MEAN CORPUSCULAR HEMOGLOBIN 28.9 pg (29.0-33.0); MEAN CORPUSCULAR HGB CONC 32.5 g/dl (32.0-37.0); MEAN CORPUSCULAR VOLUME 89.1 fl (82.0-101.0); MEAN PLATELET VOLUME 10.1 fl (7.4-10.4); POSITIVE DIFF @See below; RED BLOOD COUNT 2.66 10^6/ul (4.70-6.10); RED CELL DISTRIBUTION WIDTH 15.6 % (11.5-14.5)
[2018-07-27 16:37] LABS: WHITE BLOOD COUNT 152.1 10^3/ul (4.8-10.8)
[2018-07-27 16:44] LABS: PLATELET COUNT 23 10^3/UL (140-415)
[2018-07-27 16:45] LABS: ADD MAN DIFF? YES
[2018-07-27] MEDS ORDERED: ZOLPIDEM 5 MG TAB PO (17:30)
[2018-07-27 17:48] LABS: ANISOCYTOSIS 1+ (0-0); BAND NEUTROPHILS #M 1.5 10^3/ul (0.0-0.6); BAND NEUTROPHILS % (M) 1 % (0-4); LYMPHOCYTES #M 25.8 10^3/ul (0.8-2.9); LYMPHOCYTES % (M) 17 % (15-51); MONOCYTE #M 1.5 10^3/ul (0.3-0.9); MONOCYTES % (M) 1 % (0-11); PLATELET ESTIMATE SIG DECREASED; SEG NEUT #M 3.8 10^3/ul (1.6-7.5); SEGMENTED NEUTROPHILS (M) % 1 % (39-77); SMUDGE%M 5 % (0-0)
[2018-07-27] MEDS: MAGNESIUM HYDROXIDE 30ML CUP PO (19:21)
[2018-07-27] MEDS: LISINOPRIL 10 MG TAB PO (22:10)
[2018-07-27] MEDS: TAMSULOSIN (SR) 0.4 MG CAP PO (22:10)
[2018-07-27] MEDS: ACETAMINOPHEN 325 MG TAB PO (22:29)
[2018-07-27] MEDS: NA PHOSPHATE/BIPHOS 133 ML ENEMA PR (22:30)
[2018-07-27 23:57] LABS: AHG CROSSMATCH 1 5
[2018-07-28] MEDS: HYDROCODONE/APAP (5/325) TAB PO ×2 (00:19→07:15)
[2018-07-28] MEDS: morphine 2 MG INJ IV (03:03)
[2018-07-28] MEDS: FUROSEMIDE 20 MG INJ IV ×3 (03:09→11:00)
[2018-07-28] MEDS: PANTOPRAZOLE 40 MG INJ IV (06:18)
[2018-07-28] MEDS ORDERED: FUROSEMIDE 20 MG INJ IV (06:30)
[2018-07-28] MEDS: HYDROmorphONE 2 MG/ML SYG IV ×3 (10:09→22:48)
[2018-07-28] MEDS: MAGNESIUM HYDROXIDE 30ML CUP PO (10:58)
[2018-07-28] MEDS: LISINOPRIL 10 MG TAB PO ×2 (10:58→21:34)
[2018-07-28] MEDS: BISACODYL 10 MG SUPP PR (10:58)
[2018-07-28 13:09] LABS: WHITE BLOOD COUNT 129.5 10^3/ul (4.8-10.8)
[2018-07-28 13:09] LABS: ABNORMAL IP MESSAGE 1; HEMATOCRIT 29.8 % (42.0-52.0); HEMOGLOBIN 9.8 g/dl (14.0-18.0); MEAN CORPUSCULAR HEMOGLOBIN 29.3 pg (29.0-33.0); MEAN CORPUSCULAR HGB CONC 32.9 g/dl (32.0-37.0); MEAN PLATELET VOLUME 9.6 fl (7.4-10.4); POSITIVE DIFF @See below; RED BLOOD COUNT 3.35 10^6/ul (4.70-6.10); RED CELL DISTRIBUTION WIDTH 15.7 % (11.5-14.5)
[2018-07-28 13:17] LABS: ADD MAN DIFF? YES; PLATELET COUNT 19 10^3/UL (140-415)
[2018-07-28 13:24] LABS: ANION GAP 8 (5-13); BLOOD UREA NITROGEN 34 mg/dl (7-20); CALCIUM 8.4 mg/dl (8.4-10.2); CARBON DIOXIDE 25 mmol/L (21-31); CHLORIDE 102 mmol/L (97-110); CREATININE 1.08 mg/dl (0.61-1.24); GLUCOSE 144 mg/dl (70-220); POTASSIUM 4.3 mmol/L (3.5-5.1); SODIUM 135 mmol/L (135-144)
[2018-07-28 13:33] LABS: B-TYPE NATRIURETIC PEPTIDE 4130 PG/ML (0-125)
[2018-07-28 13:43] LABS: ANISOCYTOSIS 1+ (0-0); LYMPHOCYTES #M 41.4 10^3/ul (0.8-2.9); LYMPHOCYTES % (M) 32 % (15-51); MICROCYTOSIS 1+ (0-0); PLATELET ESTIMATE SIG DECREASED; POIKILOCYTOSIS 1+ (0-0); POLYCHROMASIA 1+ (0-0); SMUDGE%M 3 % (0-0)
[2018-07-28 16:32] LABS: TRANSFERRIN 141 mg/dL (188-341)
[2018-07-28] MEDS: ALBUTEROL/IPRATROPIUM (NEB) 3 ML AMP HHN ×2 (16:59→20:08)
[2018-07-28] MEDS: TAMSULOSIN (SR) 0.4 MG CAP PO (21:33)
[2018-07-28] MEDS ORDERED: ALBUTEROL/IPRATROPIUM (NEB) 3 ML AMP HHN (22:30)
[2018-07-28] MEDS: FUROSEMIDE 40 MG INJ IV (22:38)
[2018-07-29] MEDS: ALBUTEROL/IPRATROPIUM (NEB) 3 ML AMP HHN ×2 (01:52→08:43)
[2018-07-29] MEDS: MAGNESIUM HYDROXIDE 30ML CUP PO (02:39)
[2018-07-29 06:20] LABS: WHITE BLOOD COUNT 150.7 10^3/ul (4.8-10.8)
[2018-07-29 06:20] LABS: ABNORMAL IP MESSAGE 1; HEMATOCRIT 30.3 % (42.0-52.0); HEMOGLOBIN 9.9 g/dl (14.0-18.0); MEAN CORPUSCULAR HEMOGLOBIN 29.6 pg (29.0-33.0); MEAN CORPUSCULAR HGB CONC 32.7 g/dl (32.0-37.0); MEAN CORPUSCULAR VOLUME 90.4 fl (82.0-101.0); POSITIVE DIFF @See below; RED BLOOD COUNT 3.35 10^6/ul (4.70-6.10)
[2018-07-29 06:23] LABS: ADD MAN DIFF? YES
[2018-07-29 06:24] LABS: PLATELET COUNT 17 10^3/UL (140-415)
[2018-07-29] MEDS: PANTOPRAZOLE 40 MG INJ IV (06:38)
[2018-07-29 06:57] LABS: B-TYPE NATRIURETIC PEPTIDE 2260 PG/ML (0-125)
[2018-07-29 07:23] LABS: ANISOCYTOSIS 1+ (0-0); BAND NEUTROPHILS #M 1.5 10^3/ul (0.0-0.6); BAND NEUTROPHILS % (M) 1 % (0-4); BURR CELLS 1+ (0-0); LYMPHOCYTES #M 27.1 10^3/ul (0.8-2.9); LYMPHOCYTES % (M) 18 % (15-51); MONOCYTES % (M) 4 % (0-11); PLATELET ESTIMATE SIG DECREASED; POIKILOCYTOSIS 1+ (0-0); POLYCHROMASIA 2+ (0-0); PROMYELOCYTES #M 1.5 10^3/ul (0-0); PROMYELOCYTES % (M) 1 % (0-0); SMUDGE%M 26 % (0-0)
[2018-07-29] MEDS: HYDROmorphONE 2 MG/ML SYG IV ×2 (07:34→12:02)
[2018-07-29 07:41] LABS: ANION GAP 10 (5-13); BLOOD UREA NITROGEN 44 mg/dl (7-20); CALCIUM 8.5 mg/dl (8.4-10.2); CARBON DIOXIDE 25 mmol/L (21-31); CHLORIDE 99 mmol/L (97-110); CREATININE 1.46 mg/dl (0.61-1.24); GLUCOSE 131 mg/dl (70-220); POTASSIUM 4.4 mmol/L (3.5-5.1); SODIUM 134 mmol/L (135-144)
[2018-07-29] MEDS: LISINOPRIL 10 MG TAB PO (10:02)
== END 2018-07-29 12:40 | DRG 836 ==
LOC: E/R 05:52 → 6WM 09:54
PROC: 30233N1 Transfusion of Nonautologous Red Blood Cells into Peripheral Vein, Percutaneous Approach (ICD-10-PCS; principal; 2018-07-27)
DX: C93.00 Acute monoblastic/monocytic leukemia, not having achieved remission (principal); G89.3 Neoplasm related pain (acute) (chronic); I10 Essential (primary) hypertension; K21.9 Gastro-esophageal reflux disease without esophagitis; N40.0 Benign prostatic hyperplasia without lower urinary tract symptoms; F32.9 Major depressive disorder, single episode, unspecified; D63.8 Anemia in other chronic diseases classified elsewhere
CPT/HCPCS: 36430; 71045; 80048; 80053; 82728; 83540; 83605; 83615; 83880; 84466; 85025; 86850; 86870; 86900; 86901; 86920; 87040; 87400; 93005; 94640; 94644; 94664; 96365; 96375; 99291-25